=== PATIENT | female | born 1930 | race Caucasian/White ===

== ENCOUNTER 2016-09-04 15:48 | Emergency (ER) | payer MEDICARE, OTHER ==
--- NOTE | ~2016-09-04 | CT71 ---
[facility] A Service [facility] RADIOLOGY TEXT RESULTS PATIENT: JIM HERNDON LOCATION: SED : 32 UNIT #: [id number] AGE: [address]: Joe Serrano MD SEX: F ORDER DR: [id number] [place] [id number] MR#: [id number] Acc #: [id number] NAME: JIM HERNDON : 1930 SEX: F STUDY DATE/TIME: 09/04/2016 17:23 UNIT: SED ROOM: STUDY DESCRIPTION: CT Head Wo Contrast Attending Physician: Joe Serrano M.D. Ordering Physician: Joe Serrano M.D. Primary Care Physician: Ashutosh Singer M.D. MEDICAL IMAGING REPORT This report is preliminary unless electronic signature is present. EXAM CT of the head INDICATION Dizziness for [address] of the head without contrast. This CT examination was performed with one or more of the following radiation dose reduction techniques: automatic exposure control, adjustment of mA and/or kV according to patient size, and iterative reconstruction. COMPARISON CT head 11/29/2014. FINDINGS Axial noncontrast images were obtained from the skull base to the vertex. Ventricular size and configuration are normal. There is no evidence of acute infarct or hemorrhage. There are no extraaxial fluid collections. No mass lesion or mass effect is seen. There are no skull fractures. There is mucosal thickening throughout the right sphenoid sinus. IMPRESSION Normal noncontrast head CT. Dictated by... Colt Daniel M.D. THIS IS AN ELECTRONICALLY VERIFIED REPORT Colt Daniel M.D. at 09/05/2016 8:13 AM [facility]/s [facility] A Service [facility] RADIOLOGY TEXT RESULTS PATIENT: JIM HERNDON LOCATION: SED : 32 UNIT #: [id number] AGE: [address]: Joe Serrano MD SEX: F ORDER DR: TD: 09/05/2016 06:41 JOB #: [id number] MEDICAL IMAGING REPORT Page 1 of 1
--- NOTE | ~2016-09-04 | EKG ---
PATIENT: JIM HERNDON UNIT #: [id number] Ventricular Rate: 71 BPM Atrial Rate: 71 BPM P-R Interval: 204 ms QRS Duration: 78 ms Q-T Interval: 402 ms QTC Calculation(Bezet): 436 ms P [place]: 42 degrees Calculated R [place]: -35 degrees Calculated T [place]: 37 degrees Diagnosis Line: Normal sinus rhythm Diagnosis Line: Left axis deviation Diagnosis Line: RSR' or QR pattern in V1 suggests right Diagnosis Line: ventricular conduction delay Diagnosis Line: Voltage criteria for left ventricular hypertrophy Diagnosis Line: Cannot rule out Septal infarct , age undetermined Diagnosis Line: Abnormal ECG Diagnosis Line: When compared with ECG of 19-APR-2015 12:53, Diagnosis Line: RSR' pattern in V1 is now Present Diagnosis Line: Minimal criteria for Septal infarct are now Diagnosis Line: Present Diagnosis Line: Confirmed by ABI CARUSO MD ([id number]) on Diagnosis Line: 09/05/2016 12:45:22 PM INTERPRETING MD: SHADY PRIEST
[~2016-09-04 15:48] MED LIST: ALLERGY10 M1 PO; ALLERGY10 MG PO; AMOXICILLIN500 M1; ANTIVERT12.5 MG PO; ARICEPT5 M1; ASPIRIN81 MG PO; BAYER CHEWABLE81 MG PO; BENZONATATE PO; CALCIUM + D 6001 TA1 PO; COMBIVENT MININEB NEB; COMBIVENT14.7 GM; CRESTOR10 MG PO; DOCU SOFT100 M1 PO; FLONASE 0.05% N16 G1 INH; HI-CAL500 M1; IMDUR-ER30 M1 PO; ISOSORBIDE DINI30 MG; LEVOTHROID25 MCG PO; MACROBID100 M1 PO; PRAVASTATIN SOD20 MG PO; PREDNISONE50 MG PO; ROBITUSSIN-DM118 M1; TAMIFLU75 M1 PO; TESSALON200 MG PO; VASCEPA1 GM; VERAPAMIL ER240 M1; VERAPAMIL ER240 MG PO; ZOFRAN ODT4 MG PO
[2016-09-04 17:30] LABS: BASOPHIL# 0.1 X10e3 (0-0.3); BASOPHIL% 0.8 % (0-2.5); EOSINOPHIL# 0.2 X10e3 (0-0.7); EOSINOPHIL% 2.3 % (0.0-7.0); HEMATOCRIT 39.9 % (35.0-45.0); HEMOGLOBIN 13.2 gm/dL (12.0-16.0); LYMPHOCYTE# 4.3 X10e3 (1.0-3.5); LYMPHOCYTE% 51.2 % (17.0-45.0); MEAN CELL VOLUME 89.6 FL (83-96); MEAN CORPUSCULAR HEMOGLOBIN 29.7 PG (28-34); MEAN CORPUSCULAR HGB CONC 33.2 g/dL (30-36); MEAN PLATELET VOLUME 7.6 FL (6.5-11.5); MONOCYTE# 0.8 X10e3 (0-1.0); MONOCYTE% 9.8 % (3.0-12.0); NEUTROPHIL% 35.9 % (40-75); PLATELET COUNT 308 X10e3 (140-420); RED BLOOD COUNT 4.45 X10e (3.90-5.30); RED CELL DISTRIBUTION WIDTH 13.5 % (11.0-15.5); WHITE BLOOD COUNT 8.3 X10e3 (4.0-10.5)
[2016-09-04 17:34] LABS: POC - CKMB 1.3 ng/mL (0.0-7.9); POC - TROPONIN <0.05 ng/mL (<=0.05)
[2016-09-04 17:38] LABS: DIFF IND YES
[2016-09-04 17:49] LABS: ALBUMIN SERUM 3.8 g/dL (3.5-5.0); BILIRUBIN, DIRECT 0.1 mg/dL (0.0-0.2); BILIRUBIN,INDIRECT 0.5 mg/dL (0.0-0.9); BILIRUBIN,TOTAL 0.6 mg/dL (0.2-2.0); CALCIUM SERUM 8.9 mg/dL (8.4-10.2); CREATININE SERUM 0.8 mg/dL (0.6-1.4); GLOM FILT RATE Estimated 68.2 mL/min (>60); POTASSIUM 3.8 mmol/L (3.5-5.1); PROTEIN TOTAL SERUM 7.2 g/dL (6.0-8.3)
[2016-09-04 17:55] LABS: PLATELET ESTIMATE NORMAL (NORMAL); RBC NORMAL YES
[2016-09-04 18:32] LABS: URINE SOURCE CLEAN CATCH
[2016-09-04 18:37] LABS: URINE APPEARANCE CLEAR; URINE BILIRUBIN NEG (NEG); URINE BLOOD TRACE-INTACT (NEG); URINE COLOR YELLOW; URINE GLUCOSE NEG (NORM); URINE KETONE NEG (NEG); URINE LEUKOCYTE ESTERASE 2+ (NEG); URINE NITRATE NEG (NEG); URINE PROTEIN NEG (NEG); URINE SPECIFIC GRAVITY 1.015 (1.003-1.035); URINE UROBILINOGEN 0.2 MG/DL (NORM)
[2016-09-04 18:41] LABS: MICRO INDICATED? YES
[2016-09-04 18:46] LABS: CULTURE INDICATED? YES; URINE BACTERIA 1+ (NEG); URINE MUCUS PRESENT; URINE SQUAMOUS EPITHELIAL CELL FEW /[HPF]; URINE WBC 25-50 /[HPF] (0-5)
== END 2016-09-04 19:12 | disposition home or self-care (01) ==
LOC: SED 15:48
PROVIDERS: Emergency Medicine
DX: R42 Dizziness and giddiness (principal); N39.0 Urinary tract infection, site not specified; J32.2 Chronic ethmoidal sinusitis; F41.9 Anxiety disorder, unspecified; I10 Essential (primary) hypertension; Z79.899 Other long term (current) drug therapy; Z79.82 Long term (current) use of aspirin; Z88.0 Allergy status to penicillin; Z88.2 Allergy status to sulfonamides; Z88.8 Allergy status to other drugs, medicaments and biological substances
CPT/HCPCS: 36415; 70450; 80048; 80076; 81003; 82553; 84484; 85025; 87086; 93005; 96374; 99284; J2405